=== PATIENT | male | born 1960 | race Caucasian/White ===

== ENCOUNTER → 2024-12-17 11:00 | Outpatient (REF) | payer MEDICARE, SELFPAY | LOC: CLAB 11:00 | PROVIDERS: ATTENDING PHYSICIAN Physician Assistant | DX: H60.392 Other infective otitis externa, left ear (principal) | CPT/HCPCS: 87070; 87147; 87186 ==

== ENCOUNTER → 2025-02-27 07:56 | Outpatient (REF) | payer MEDICARE, SELFPAY | LOC: HWRAD 07:56 | PROVIDERS: ATTENDING PHYSICIAN Otolaryngology; FAMILY PHYSICIAN Nurse Practitioner Family | DX: H90.A12 Conductive hearing loss, unilateral, left ear with restricted hearing on the contralateral side (principal) | CPT/HCPCS: 70480 ==

== ENCOUNTER 2025-09-30 06:21 | Day surgery (SDC) | payer MEDICARE, SELFPAY ==
[2025-09-30 07:13] LABS: Glucose - Point of Care 113 mg/dl (70-99)
== END 2025-09-30 08:44 | disposition home or self-care (01) ==
LOC: GI 06:21
PROVIDERS: ATTENDING PHYSICIAN Internal Medicine Gastroenterology
DX: Z12.11 Encounter for screening for malignant neoplasm of colon (principal); K57.30 Diverticulosis of large intestine without perforation or abscess without bleeding; K64.8 Other hemorrhoids; Z83.719 Family history of colon polyps, unspecified
CPT/HCPCS: G0105; 82962

== ENCOUNTER 2025-11-02 06:21 | Day surgery (SDC) | payer MEDICARE, SELFPAY ==
[2025-11-02 07:23] LABS: Glucose - Point of Care 112 mg/dl (70-99)
== END 2025-11-02 08:53 | disposition home or self-care (01) ==
LOC: GI 06:21
PROVIDERS: ATTENDING PHYSICIAN Internal Medicine Gastroenterology
DX: K22.70 Barrett's esophagus without dysplasia (principal)
CPT/HCPCS: 43239; 82962; 88305